=== PATIENT | female | born 1995 | race Caucasian/White ===

== ENCOUNTER → 2018-07-01 | Outpatient (REF) | payer MEDICAID ==
[2018-07-01 13:29] LABS: HEMATOCRIT 46.9 % (36.0-47.0); HEMOGLOBIN 16.2 g/dl (12.0-15.5); MEAN CORPUSCULAR HEMOGLOBIN 33.2 pg (27.0-33.0); MEAN CORPUSCULAR HGB CONC 34.5 g/dl (32.0-36.5); MEAN CORPUSCULAR VOLUME 96.1 fl (80.0-96.0); PLATELET COUNT, AUTOMATED 277 10^3/uL (150-450); RED BLOOD COUNT 4.88 10^6/uL (4.00-5.40); RED CELL DISTRIBUTION WIDTH 12.5 % (11.5-14.5); WHITE BLOOD COUNT 10.2 10^3/uL (4.0-10.0)
[2018-07-01 14:15] LABS: HCG, SERUM QUANTITATIVE 73406 MIU/ML
[2018-07-02 11:17] LABS: RUBELLA IgG QUALITATIVE IMMUNE (IMMUNE)
[2018-07-02 11:46] LABS: HEPATITIS C VIRUS ABY INDEX 0.1 INDEX (<0.8)
[2018-07-02 11:47] LABS: HIV 1&2 SCREEN CENTAUR NEGATIVE (NEGATIVE)
[2018-07-02 14:01] LABS: HEPATITIS B SURFACE ANTIGEN NEGATIVE (NEGATIVE)
== END ==
LOC: M LAB REF 13:05
DX: O36.80X0 Pregnancy with inconclusive fetal viability, not applicable or unspecified (principal)
CPT/HCPCS: 86762

== ENCOUNTER 2018-07-20 16:23 | Emergency (ER) | payer OTHER, MEDICAID ==
[2018-07-20] MEDS: AMOXICILLIN 500 MG CAP PO (16:57)
== END 2018-07-20 16:59 | disposition home or self-care (01) ==
LOC: M ED 16:23
DX: O99.89 Other specified diseases and conditions complicating pregnancy, childbirth and the puerperium (principal); K02.9 Dental caries, unspecified; Z3A.16 16 weeks gestation of pregnancy
CPT/HCPCS: 99282